=== PATIENT | female | born 1955 | race Caucasian/White ===

== ENCOUNTER 2017-10-16 22:49 | Emergency (ER) | payer BC, OTHER ==
[~2017-10-16] VITALS: Ht 157.5 cm; Wt 82.7 kg
[~2017-10-16 22:49] MED LIST: AMLO5TAB PO; DIAZ5TAB7 PO; DICL1GEL11 TP; DOCU-300; HYDR200T5 PO; IMU50 PO; KEN.1C TP; NITR0.4T2 SL; PHEN100C4 PO; PRED10TA5 PO; SULF1TAB12 PO; TRAM50TA1 PO; ZOLP5TAB1 PO; [UNRECOGNIZED DRUG - CODE] IV; [UNRECOGNIZED DRUG - CODE] PO; [UNRECOGNIZED DRUG - CODE] PO; [UNRECOGNIZED DRUG - CODE] PO
[2017-10-16 22:59] VITALS: BP 166/93
[2017-10-16] MEDS ORDERED: METF500T PO (23:05)
[2017-10-16] MEDS ORDERED: predniSONE 20 MG TAB PO ONE (23:35)
[2017-10-16] MEDS ORDERED: HYDROmorphone PFS 2 MG/ML SYR IM ONE (23:35)
[2017-10-17 00:53] VITALS: BP 128/76
== END 2017-10-17 00:20 | disposition home or self-care (01) ==
LOC: MED 22:49
DX: G89.29 Other chronic pain (principal); E11.9 Type 2 diabetes mellitus without complications; Z88.0 Allergy status to penicillin; Z88.1 Allergy status to other antibiotic agents; Z88.5 Allergy status to narcotic agent
CPT/HCPCS: 81002; 82948; 96372; 99283; J1170; J7512

== ENCOUNTER 2017-11-24 09:10 | Inpatient (IN) | payer BC, OTHER ==
[~2017-11-24] VITALS: Ht 157.5 cm; Wt 74.6 kg
[~2017-11-24 09:10] MED LIST changes: -AMLO5TAB PO; -DIAZ5TAB7 PO; -HYDR200T5 PO; -IMU50 PO; +METF500T PO; -SULF1TAB12 PO; -ZOLP5TAB1 PO; -[UNRECOGNIZED DRUG - CODE] IV; -[UNRECOGNIZED DRUG - CODE] PO
[2017-11-24 09:30] VITALS: BP 121/68
[2017-11-24] MEDS ORDERED: NACL 0.9% 1,000 ML IV ONE (11:10)
[2017-11-24] MEDS ORDERED: ONDANSETRON 4 MG/2 ML VIAL IVP ONE (11:10)
[2017-11-24] MEDS ORDERED: fentaNYL 0.05 MG/ML VIAL IVP ONE ×2 (11:10→12:45)
[2017-11-24 11:50] LABS: BASOPHILS # (AUTO) 0.1 K/uL (0.00-0.22); BASOPHILS % (AUTO) 0.8 % (0.0-2.0); EOSINOPHILS % (AUTO) 0.3 % (0.0-4.0); HEMATOCRIT 43.5 % (36-48); LYMPHOCYTES # (AUTO) 0.8 K/uL (2.5-16.5); LYMPHOCYTES % (AUTO) 6.1 % (20.5-51.1); MEAN CORPUSCULAR HEMOGLOBIN 27 pg (27-31); MEAN CORPUSCULAR HGB CONC 32 g/dL (33-37); MEAN CORPUSCULAR VOLUME 84 fL (80-94); MONOCYTES # (AUTO) 0.7 K/uL (0.8-1.0); MONOCYTES % (AUTO) 5.7 % (1.7-9.3); NEUTROPHILS # (AUTO) 10.9 K/uL (1.8-7.7); NEUTROPHILS % (AUTO) 87.1 % (42.2-75.2); PLATELET COUNT (AUTO) 237 K/uL (140-450); RED BLOOD CELL COUNT(AUTO) 5.21 MIL/uL (4.20-5.40); RED CELL DISTRIBUTION WIDTH 13.7 % (11.6-13.7); WHITE BLOOD COUNT (AUTO) 12.5 K/uL (4.8-10.8)
[2017-11-24 11:54] LABS: ALBUMIN 3.8 g/dL (3.4-5.0); ANION GAP 12.8 (8-16); CARBON DIOXIDE 25.7 mmol/L (21-32); CREATININE 0.7 mg/dL (0.6-1.3); POTASSIUM 3.5 mmol/L (3.5-5.1); TOTAL BILIRUBIN 0.3 mg/dL (0.0-1.0)
[2017-11-24] MEDS ORDERED: methylPREDNISolone SS 125 MG/2 ML VIAL IVP ONE (13:35)
[2017-11-24] MEDS ORDERED: ACETAMINOPHEN 325 MG TAB PO PRN (13:40)
[2017-11-24] MEDS ORDERED: ONDANSETRON 4 MG/2 ML VIAL IVP PRN (13:40)
[2017-11-24] MEDS ORDERED: MORPHINE SULFATE 2 MG/ML SYR IVP PRN (13:40)
[2017-11-24] MEDS ORDERED: LORazepam 2 MG/ML VIAL IVP PRN (13:40)
[2017-11-24 14:57] LABS: APPEARANCE,URINE CLEAR (CLEAR); BILIRUBIN,URINE NEGATIVE (NEGATIVE); BLOOD, URINE 1+ (NEGATIVE); COLOR,URINE YELLOW (YELLOW); LEUKOCYTE ESTERASE ,URINE NEGATIVE (NEGATIVE); NITRITE, URINE NEGATIVE (NEGATIVE); PH,URINE 5.5 (5.0-9.0); UGLUCOSE NEGATIVE (NEGATIVE)
[2017-11-24 15:10] LABS: RBC,URINE 0-5 (RARE) /HPF (0-5); WBC,URINE 0-5 (RARE) /HPF (0-5)
[2017-11-24] MEDS: HYDROmorphone PFS 2 MG/ML SYR IVP PRN ×2 (16:12→20:47)
[2017-11-24] MEDS: NACL 0.9% 1,000 ML IV SCH (16:13)
[2017-11-24 16:41] VITALS: BP 110/62
[2017-11-24] MEDS ORDERED: PNEUMOCOCCAL VACCINE 23 MCG/0.5 ML VIAL IMVAC SCH (17:00)
[2017-11-24] MEDS ORDERED: DOCUSATE SODIUM 100 MG GELCAP PO PRN (17:40)
[2017-11-24 20:00] VITALS: BP 126/59
[2017-11-24] MEDS: predniSONE 20 MG TAB PO SCH (20:48)
[2017-11-24] MEDS: PHENYTOIN 100 MG CAPER PO SCH (20:48)
[2017-11-25] VITALS: BP 115/58
[2017-11-25] MEDS: guaiFENesin DM 200/20 MG-10 ML 10 ML UDC PO PRN ×2 (00:09→05:38)
[2017-11-25] MEDS: NACL 0.9% 1,000 ML IV SCH ×3 (02:12→12:34)
[2017-11-25] MEDS: HYDROmorphone PFS 2 MG/ML SYR IVP PRN ×4 (03:52→20:44)
[2017-11-25 04:00] VITALS: BP 132/55
[2017-11-25 07:21] LABS: BASOPHILS # (AUTO) 0.1 K/uL (0.00-0.22); BASOPHILS % (AUTO) 0.6 % (0.0-2.0); EOSINOPHILS % (AUTO) 0.2 % (0.0-4.0); HEMOGLOBIN 13.2 g/dL (12.0-16.0); LYMPHOCYTES % (AUTO) 9.2 % (20.5-51.1); MEAN CORPUSCULAR HEMOGLOBIN 28 pg (27-31); MEAN CORPUSCULAR HGB CONC 34 g/dL (33-37); MEAN CORPUSCULAR VOLUME 83 fL (80-94); MONOCYTES # (AUTO) 0.5 K/uL (0.8-1.0); MONOCYTES % (AUTO) 4.6 % (1.7-9.3); NEUTROPHILS # (AUTO) 9.1 K/uL (1.8-7.7); NEUTROPHILS % (AUTO) 85.4 % (42.2-75.2); PLATELET COUNT (AUTO) 227 K/uL (140-450); RED BLOOD CELL COUNT(AUTO) 4.72 MIL/uL (4.20-5.40); RED CELL DISTRIBUTION WIDTH 13.8 % (11.6-13.7); WHITE BLOOD COUNT (AUTO) 10.7 K/uL (4.8-10.8)
[2017-11-25 08:00] VITALS: BP 133/58
[2017-11-25] MEDS: predniSONE 20 MG TAB PO SCH ×2 (08:31→20:41)
[2017-11-25] MEDS: PHENYTOIN 100 MG CAPER PO SCH ×2 (08:31→20:41)
[2017-11-25] MEDS: SENNA 8.6 MG TAB PO SCH (08:32)
[2017-11-25] MEDS ORDERED: ENOXAPARIN 30 MG/0.3 ML SYR SUBQ SCH (09:00)
[2017-11-25 09:04] LABS: ANION GAP 12.2 (8-16); CARBON DIOXIDE 25.7 mmol/L (21-32); POTASSIUM 3.9 mmol/L (3.5-5.1)
[2017-11-25 09:05] LABS: ALBUMIN 3.1 g/dL (3.4-5.0); CREATININE 0.6 mg/dL (0.6-1.3); MAGNESIUM 1.9 mg/dL (1.8-2.4); PHOSPHORUS 3.1 mg/dL (2.5-4.9); TOTAL BILIRUBIN 0.2 mg/dL (0.0-1.0)
[2017-11-25 12:00] VITALS: BP 128/60
[2017-11-25 15:46] VITALS: BP_SYST 103; BP_SYST 125; BP_DIAS 53; BP_DIAS 55
[2017-11-25 20:00] VITALS: BP 108/54
[2017-11-26] VITALS: BP 137/67
[2017-11-26 04:00] VITALS: BP 125/65
[2017-11-26] MEDS: HYDROmorphone PFS 2 MG/ML SYR IVP PRN ×5 (05:34→22:08)
[2017-11-26] MEDS: NACL 0.9% 1,000 ML IV SCH ×2 (06:11→15:36)
[2017-11-26 08:00] VITALS: BP 131/65
[2017-11-26] MEDS: PHENYTOIN 100 MG CAPER PO SCH ×2 (09:20→21:01)
[2017-11-26] MEDS: predniSONE 20 MG TAB PO SCH ×2 (09:21→21:01)
[2017-11-26] MEDS: SENNA 8.6 MG TAB PO SCH (09:21)
[2017-11-26 12:00] VITALS: BP 128/58
[2017-11-26 16:00] VITALS: BP 112/58
[2017-11-26] MEDS: guaiFENesin DM 200/20 MG-10 ML 10 ML UDC PO PRN (23:55)
[2017-11-27] VITALS: BP 128/57
[2017-11-27] MEDS: HYDROmorphone PFS 2 MG/ML SYR IVP PRN ×4 (02:29→16:49)
[2017-11-27] MEDS: NACL 0.9% 1,000 ML IV SCH ×2 (02:30→09:27)
[2017-11-27 08:00] VITALS: BP 137/89
[2017-11-27] MEDS ORDERED: methylPREDNISolone SS 40 MG in WATER STERILE 1 ML IV ONE (08:25)
[2017-11-27] MEDS ORDERED: methylPREDNISolone SS 40 MG/ML VIAL IVP SCH (08:31)
[2017-11-27] MEDS: predniSONE 20 MG TAB PO SCH (08:46)
[2017-11-27] MEDS: SENNA 8.6 MG TAB PO SCH (08:46)
[2017-11-27] MEDS: PHENYTOIN 100 MG CAPER PO SCH (08:47)
[2017-11-27] MEDS: ALBUTEROL 0.083% 2.5 MG/3 ML NEBU INH PRN ×2 (09:31→15:18)
[2017-11-27 12:00] VITALS: BP 149/83
[2017-11-27 16:45] VITALS: BP 142/65
== END 2017-11-27 18:12 | DRG 438 ==
LOC: MED 09:10 → MTU 13:43
PROVIDERS: ADMIT Hospitalist; ATTEND Hospitalist
DX: K85.90 Acute pancreatitis without necrosis or infection, unspecified (principal); D66 Hereditary factor VIII deficiency; E11.42 Type 2 diabetes mellitus with diabetic polyneuropathy; M32.9 Systemic lupus erythematosus, unspecified; R56.9 Unspecified convulsions; M79.1 Myalgia; M25.50 Pain in unspecified joint; M54.5 Low back pain; K59.00 Constipation, unspecified; M79.606 Pain in leg, unspecified; Z88.0 Allergy status to penicillin; Z88.6 Allergy status to analgesic agent; Z91.018 Allergy to other foods; Z88.8 Allergy status to other drugs, medicaments and biological substances
CPT/HCPCS: 36415; 80053; 81001; 82948; 83690; 83735; 84100; 84484; 85025; 85651; 86140; 87081; 90732; 93005; 96361; 96374; 96375; 96376; 97110; 97116; 97530; 99285; J1170; J2405; J2920; J2930; J3010; J7030; J7512; J7613; Q0163

== ENCOUNTER 2017-12-19 16:29 | Emergency (ER) | payer BC, OTHER ==
[~2017-12-19] VITALS: Ht 157.5 cm; Wt 76.2 kg
[2017-12-19 16:43] VITALS: BP 123/68
--- NOTE | 2017-12-19 16:49 | NUR ---
PATIENT AMB. TO BED #4
--- NOTE | 2017-12-19 16:55 | NUR ---
PATIENT PRESENTS TO ED WITH C/O RASH AND GENERALIZED PAIN x TODAY @ 1000.HX: DM, LUPUS, MEDS: PREDNISONE, METFORMIN . GENERALIZED RASH, PATIENT STATES PAIN OF 10/10 AT THIS TIME; VSS; PATIENT POSITIONED FOR COMFORT; HOB ELEVATED; BEDRAILS UP X2; BED DOWN. ER MD MADE AWARE OF PT STATUS.
[2017-12-19] MEDS ORDERED: HYDROmorphone PFS 4 MG/ML SYR IM ONE (17:00)
[2017-12-19] MEDS ORDERED: diphenhydrAMINE 50 MG/ML VIAL IM ONE (17:05)
--- NOTE | 2017-12-19 18:00 | NUR ---
Patient discharged with v/s stable. Written and verbal after care instructions given and explained. Patient alert, oriented and verbalized understanding of instructions. Ambulatory with steady gait. All questions addressed prior to discharge. ID band removed. Patient advised to follow up with PMD. Rx of NORCO, PROMETHAZINE, ATARAX given. Patient educated on indication of medication including possible reaction and side effects. Opportunity to ask questions provided and answered.
[2017-12-19 18:01] VITALS: BP 123/68
== END 2017-12-19 18:00 | disposition home or self-care (01) ==
LOC: MED 16:29
DX: L93.0 Discoid lupus erythematosus (principal); K59.00 Constipation, unspecified; L50.9 Urticaria, unspecified; E11.9 Type 2 diabetes mellitus without complications; Z88.0 Allergy status to penicillin; Z88.8 Allergy status to other drugs, medicaments and biological substances; Z88.5 Allergy status to narcotic agent
CPT/HCPCS: 93005; 96372; 99284; J1170; J1200

== ENCOUNTER 2017-12-27 14:12 | Inpatient (IN) | payer BC, OTHER ==
[~2017-12-27] VITALS: Ht 157.5 cm; Wt 74.8 kg
[2017-12-27 14:35] VITALS: BP 136/68
[2017-12-27] MEDS ORDERED: NACL 0.9% 1,000 ML IV ONE (15:30)
[2017-12-27] MEDS ORDERED: diphenhydrAMINE 50 MG/ML VIAL IVP ONE ×2 (15:30→17:10)
[2017-12-27] MEDS ORDERED: MORPHINE SULFATE 10 MG/ML SYR IVP ONE (15:30)
[2017-12-27] MEDS ORDERED: MORPHINE SULFATE ORAL SOLN 2 MG/ML UDC ONE (15:46)
[2017-12-27 16:13] LABS: BASOPHILS # (AUTO) 0.1 K/uL (0.00-0.22); EOSINOPHILS # (AUTO) 0.1 K/uL (0-0.4); EOSINOPHILS % (AUTO) 0.6 % (0.0-4.0); HEMATOCRIT 43.4 % (36-48); HEMOGLOBIN 14.2 g/dL (12.0-16.0); LYMPHOCYTES # (AUTO) 1.2 K/uL (2.5-16.5); LYMPHOCYTES % (AUTO) 14.2 % (20.5-51.1); MEAN CORPUSCULAR HEMOGLOBIN 27 pg (27-31); MEAN CORPUSCULAR HGB CONC 33 g/dL (33-37); MEAN CORPUSCULAR VOLUME 81.6 fL (80-94); MONOCYTES # (AUTO) 0.5 K/uL (0.8-1.0); MONOCYTES % (AUTO) 6.4 % (1.7-9.3); NEUTROPHILS # (AUTO) 6.5 K/uL (1.8-7.7); NEUTROPHILS % (AUTO) 77.8 % (42.2-75.2); PLATELET COUNT (AUTO) 245 K/uL (140-450); RED BLOOD CELL COUNT(AUTO) 5.32 MIL/uL (4.20-5.40); WHITE BLOOD COUNT (AUTO) 8.4 K/uL (4.8-10.8)
[2017-12-27] MEDS ORDERED: MORPHINE SULFATE 4 MG/ML SYR ONE (16:24)
[2017-12-27] MEDS ORDERED: MORPHINE SULFATE 2 MG/ML SYR ONE (16:24)
[2017-12-27 16:28] LABS: PROTHROMBIN TIME 9.8 secs (10.8-13.4)
[2017-12-27 16:29] LABS: ANION GAP 13.2 (8-16); CARBON DIOXIDE 28.3 mmol/L (21-32); CREATININE 0.7 mg/dL (0.6-1.3); POTASSIUM 3.5 mmol/L (3.5-5.1)
[2017-12-27 16:35] LABS: ALBUMIN 3.4 g/dL (3.4-5.0); TOTAL BILIRUBIN 0.2 mg/dL (0.0-1.0)
[2017-12-27] MEDS ORDERED: MORPHINE SULFATE 5 MG/ML VIAL IVP ONE (17:40)
[2017-12-27] MEDS ORDERED: methylPREDNISolone SS 125 MG in WATER STERILE 2 ML IV ONE (18:25)
[2017-12-27] MEDS ORDERED: hydrOXYzine HCL 25 MG TAB PO ONE (18:25)
[2017-12-27] MEDS ORDERED: methylPREDNISolone SS 125 MG/2 ML VIAL ONE (18:30)
[2017-12-27] MEDS ORDERED: hydrOXYzine HCL 25 MG TAB ONE (18:36)
[2017-12-27] MEDS ORDERED: HYDROmorphone PFS 2 MG/ML SYR IVP ONE (18:40)
[2017-12-27] MEDS ORDERED: NACL 0.9% 1,000 ML IV SCH (19:31)
[2017-12-27] MEDS ORDERED: ONDANSETRON 4 MG/2 ML VIAL IVP PRN (19:35)
[2017-12-27] MEDS ORDERED: ACETAMINOPHEN 325 MG TAB PO PRN (19:35)
[2017-12-27] MEDS ORDERED: HYDROcodone/APAP 10/325 MG 1 TAB TAB PO PRN (19:40)
[2017-12-27] MEDS ORDERED: HYDROcodone/APAP 5/325 MG 1 TAB TAB PO PRN (19:40)
[2017-12-27] MEDS ORDERED: DEXTROSE 50% 50 ML SYR IVP PRN (19:45)
[2017-12-27 20:00] VITALS: BP 135/77
[2017-12-27] MEDS ORDERED: traMADol 50 MG TAB PO PRN (20:05)
[2017-12-27] MEDS ORDERED: NITROGLYCERIN 0.4 MG TAB SL PRN (20:05)
[2017-12-27] MEDS ORDERED: DICLOFENAC SODIUM TP PRN (20:05)
[2017-12-27] MEDS ORDERED: TAPENTADOL HCL 100 MG PO PRN (20:05)
[2017-12-27 20:12] LABS: CHOL/HDL RATIO 2.7 (1-4.5); FREE T4 (FREE THYROXINE) 1.07 ng/dL (0.76-1.46); MAGNESIUM 2.2 mg/dL (1.8-2.4); PHOSPHORUS 3.4 mg/dL (2.5-4.9); THYROID STIMULATING HORMONE 0.41 uIU/mL (0.34-3.74)
[2017-12-27 20:17] LABS: APPEARANCE,URINE CLEAR (CLEAR); BILIRUBIN,URINE NEGATIVE (NEGATIVE); BLOOD, URINE NEGATIVE (NEGATIVE); COLOR,URINE YELLOW (YELLOW); LEUKOCYTE ESTERASE ,URINE NEGATIVE (NEGATIVE); NITRITE, URINE NEGATIVE (NEGATIVE); UGLUCOSE 1+ (NEGATIVE)
[2017-12-27 20:23] LABS: BARBITURATE, URINE NEG. ng/ml (NEG <=200); BENZODIAZEPINE, URINE POS. ng/mL (NEG <=200); CANNABINOID, URINE POS. ng/mL (NEG <=50); COCAINE, URINE NEG. ng/mL (NEG <=300); OPIATE, URINE POS. ng/mL (NEG <=2000); PHENCYCLIDINE SCREEN,URINE NEG. ng/mL (NEG <=25)
[2017-12-27] MEDS ORDERED: predniSONE 10 MG TAB PO SCH (21:00)
[2017-12-27] MEDS ORDERED: DOCUSATE SODIUM 100 MG GELCAP PO SCH (21:00)
[2017-12-27] MEDS: BLOOD GLUCOSE MONITORING 1 DEV DEV FS SCH (21:04)
[2017-12-27] MEDS: PHENYTOIN 100 MG CAPER PO SCH (21:17)
[2017-12-27] MEDS: oxyCODONE/APAP 5/325 MG 1 TAB TAB PO PRN (21:19)
[2017-12-27] MEDS ORDERED: LACTULOSE 20 GM/30 ML UDC PO SCH (21:45)
[2017-12-27] MEDS: INSULIN LISPRO SLIDING SCALE 100 UNITS/ML VIAL SUBQ PRN (22:00)
[2017-12-28] VITALS (7 sets, daily range): BP systolic 94–135; BP diastolic 58–78
[2017-12-28] MEDS ORDERED: GABAPENTIN 300 MG CAP PO SCH (01:00)
[2017-12-28] MEDS: GABAPENTIN 300 MG CAP PO SCH ×3 (01:03→20:17)
[2017-12-28] MEDS: HYDROcodone/APAP 5/325 MG 1 TAB TAB PO PRN (01:03)
[2017-12-28] MEDS ORDERED: INFLUENZA VIRUS VACCINE QUAD 0.5 ML SYR IMVAC SCH (02:35)
[2017-12-28] MEDS: oxyCODONE/APAP 5/325 MG 1 TAB TAB PO PRN ×5 (04:33→23:58)
[2017-12-28] MEDS: INSULIN LISPRO SLIDING SCALE 100 UNITS/ML VIAL SUBQ PRN ×4 (05:26→20:39)
[2017-12-28] MEDS ORDERED: TRIAMCINOLONE 0.1% CRM 15 GM TUBE TP PRN (05:40)
[2017-12-28] MEDS: BLOOD GLUCOSE MONITORING 1 DEV DEV FS SCH ×4 (06:44→20:27)
[2017-12-28 07:53] LABS: ANION GAP 16.4 (8-16); CREATININE 0.7 mg/dL (0.6-1.3); POTASSIUM 4.4 mmol/L (3.5-5.1)
[2017-12-28 08:02] LABS: BASOPHILS % (AUTO) 0.5 % (0.0-2.0); EOSINOPHILS % (AUTO) 0.1 % (0.0-4.0); HEMATOCRIT 44.1 % (36-48); HEMOGLOBIN 14.6 g/dL (12.0-16.0); LYMPHOCYTES # (AUTO) 0.5 K/uL (2.5-16.5); LYMPHOCYTES % (AUTO) 5.5 % (20.5-51.1); MEAN CORPUSCULAR HEMOGLOBIN 28 pg (27-31); MEAN CORPUSCULAR HGB CONC 33 g/dL (33-37); MEAN CORPUSCULAR VOLUME 84.4 fL (80-94); MONOCYTES # (AUTO) 0.3 K/uL (0.8-1.0); MONOCYTES % (AUTO) 2.9 % (1.7-9.3); NEUTROPHILS # (AUTO) 9.2 K/uL (1.8-7.7); PLATELET COUNT (AUTO) 227 K/uL (140-450); RED BLOOD CELL COUNT(AUTO) 5.23 MIL/uL (4.20-5.40); RED CELL DISTRIBUTION WIDTH 13.7 % (11.6-13.7)
[2017-12-28] MEDS: metFORMIN 500 MG TAB PO SCH ×2 (08:43→16:49)
[2017-12-28] MEDS: DOCUSATE SODIUM 100 MG GELCAP PO SCH (08:43)
[2017-12-28] MEDS: hydrOXYzine HCL 25 MG TAB PO SCH ×3 (08:44→16:49)
[2017-12-28] MEDS: LACTULOSE 20 GM/30 ML UDC PO SCH ×3 (08:44→20:27)
[2017-12-28] MEDS: predniSONE 10 MG TAB PO SCH ×2 (08:44→20:17)
[2017-12-28] MEDS: PHENYTOIN 100 MG CAPER PO SCH ×2 (08:45→20:17)
[2017-12-28 08:57] LABS: MAGNESIUM 2.1 mg/dL (1.8-2.4); PHOSPHORUS 2.9 mg/dL (2.5-4.9)
[2017-12-28] MEDS ORDERED: predniSONE 5 MG TAB PO SCH (09:00)
[2017-12-28] MEDS ORDERED: CYCLOBENZAPRINE 10 MG TAB PO SCH (14:00)
[2017-12-28] MEDS: traZODone 50 MG TAB PO SCH (20:17)
[2017-12-28] MEDS: KETOROLAC 30 MG/ML VIAL IM PRN (20:20)
[2017-12-29] VITALS: BP 105/56
[2017-12-29] MEDS: KETOROLAC 30 MG/ML VIAL IM PRN ×4 (02:38→20:59)
[2017-12-29 04:00] VITALS: BP 110/60
[2017-12-29] MEDS: BLOOD GLUCOSE MONITORING 1 DEV DEV FS SCH ×4 (06:18→20:58)
[2017-12-29] MEDS: INSULIN LISPRO SLIDING SCALE 100 UNITS/ML VIAL SUBQ PRN ×3 (06:19→17:22)
[2017-12-29] MEDS: oxyCODONE/APAP 5/325 MG 1 TAB TAB PO PRN ×3 (06:25→17:15)
[2017-12-29 07:03] LABS: BASOPHILS # (AUTO) 0.1 K/uL (0.00-0.22); EOSINOPHILS % (AUTO) 0.6 % (0.0-4.0); HEMATOCRIT 43.6 % (36-48); HEMOGLOBIN 14.4 g/dL (12.0-16.0); LYMPHOCYTES # (AUTO) 0.6 K/uL (2.5-16.5); LYMPHOCYTES % (AUTO) 8.3 % (20.5-51.1); MEAN CORPUSCULAR HEMOGLOBIN 28 pg (27-31); MEAN CORPUSCULAR HGB CONC 33 g/dL (33-37); MEAN CORPUSCULAR VOLUME 83.6 fL (80-94); MONOCYTES # (AUTO) 0.4 K/uL (0.8-1.0); MONOCYTES % (AUTO) 5.3 % (1.7-9.3); NEUTROPHILS # (AUTO) 6.5 K/uL (1.8-7.7); NEUTROPHILS % (AUTO) 84.8 % (42.2-75.2); PLATELET COUNT (AUTO) 229 K/uL (140-450); RED BLOOD CELL COUNT(AUTO) 5.22 MIL/uL (4.20-5.40); WHITE BLOOD COUNT (AUTO) 7.6 K/uL (4.8-10.8)
[2017-12-29 07:49] LABS: ANION GAP 14.9 (8-16); CARBON DIOXIDE 24.7 mmol/L (21-32); CREATININE 0.7 mg/dL (0.6-1.3); POTASSIUM 4.6 mmol/L (3.5-5.1)
[2017-12-29 07:55] LABS: MAGNESIUM 2.1 mg/dL (1.8-2.4); PHOSPHORUS 2.6 mg/dL (2.5-4.9)
[2017-12-29 08:43] VITALS: BP 124/70
[2017-12-29] MEDS: hydrOXYzine HCL 25 MG TAB PO SCH ×3 (08:48→17:16)
[2017-12-29] MEDS: predniSONE 10 MG TAB PO SCH ×2 (08:48→20:59)
[2017-12-29] MEDS: metFORMIN 500 MG TAB PO SCH ×2 (08:48→17:14)
[2017-12-29] MEDS: GABAPENTIN 300 MG CAP PO SCH ×2 (08:49→20:58)
[2017-12-29] MEDS: PHENYTOIN 100 MG CAPER PO SCH ×2 (08:49→20:58)
[2017-12-29] MEDS: DOCUSATE SODIUM 100 MG GELCAP PO SCH (08:49)
[2017-12-29] MEDS: LACTULOSE 20 GM/30 ML UDC PO SCH ×2 (08:52→21:00)
[2017-12-29 12:00] VITALS: BP 121/74
[2017-12-29 16:00] VITALS: BP 119/65
[2017-12-29 20:00] VITALS: BP 106/59
[2017-12-29] MEDS: traZODone 50 MG TAB PO SCH (20:58)
[2017-12-30] VITALS: BP 96/56
[2017-12-30 04:00] VITALS: BP 105/61
[2017-12-30] MEDS: KETOROLAC 30 MG/ML VIAL IM PRN ×2 (04:19→10:20)
[2017-12-30] MEDS: INSULIN LISPRO SLIDING SCALE 100 UNITS/ML VIAL SUBQ PRN ×2 (06:03→12:08)
[2017-12-30] MEDS: BLOOD GLUCOSE MONITORING 1 DEV DEV FS SCH ×3 (06:04→16:30)
[2017-12-30 08:00] VITALS: BP 124/65
[2017-12-30] MEDS: metFORMIN 500 MG TAB PO SCH (08:14)
[2017-12-30] MEDS: oxyCODONE/APAP 5/325 MG 1 TAB TAB PO PRN (08:16)
[2017-12-30] MEDS: DOCUSATE SODIUM 100 MG GELCAP PO SCH (08:16)
[2017-12-30] MEDS: GABAPENTIN 300 MG CAP PO SCH (08:17)
[2017-12-30] MEDS: predniSONE 10 MG TAB PO SCH (08:18)
[2017-12-30] MEDS: PHENYTOIN 100 MG CAPER PO SCH (08:18)
[2017-12-30] MEDS: LACTULOSE 20 GM/30 ML UDC PO SCH (08:22)
[2017-12-30] MEDS: hydrOXYzine HCL 25 MG TAB PO SCH ×2 (08:24→12:40)
[2017-12-30 08:27] LABS: ANION GAP 15.6 (8-16); CARBON DIOXIDE 24.7 mmol/L (21-32); CREATININE 0.7 mg/dL (0.6-1.3); POTASSIUM 4.3 mmol/L (3.5-5.1)
[2017-12-30 08:28] LABS: BASOPHILS % (AUTO) 0.1 % (0.0-2.0); HEMATOCRIT 43.5 % (36-48); HEMOGLOBIN 14.7 g/dL (12.0-16.0); LYMPHOCYTES # (AUTO) 1.1 K/uL (2.5-16.5); LYMPHOCYTES % (AUTO) 12.4 % (20.5-51.1); MEAN CORPUSCULAR HEMOGLOBIN 28 pg (27-31); MEAN CORPUSCULAR HGB CONC 34 g/dL (33-37); MEAN CORPUSCULAR VOLUME 82.8 fL (80-94); MONOCYTES # (AUTO) 0.4 K/uL (0.8-1.0); MONOCYTES % (AUTO) 4.9 % (1.7-9.3); NEUTROPHILS % (AUTO) 82.6 % (42.2-75.2); PLATELET COUNT (AUTO) 236 K/uL (140-450); RED BLOOD CELL COUNT(AUTO) 5.26 MIL/uL (4.20-5.40); RED CELL DISTRIBUTION WIDTH 14.8 % (11.6-13.7); WHITE BLOOD COUNT (AUTO) 8.5 K/uL (4.8-10.8)
[2017-12-30 08:45] LABS: MAGNESIUM 2.1 mg/dL (1.8-2.4); PHOSPHORUS 3.1 mg/dL (2.5-4.9)
[2017-12-30 12:00] VITALS: BP 118/63
[2017-12-30] MEDS ORDERED: METF10002 PO (13:38)
[2017-12-30] MEDS: HYDROcodone/APAP 5/325 MG 1 TAB TAB PO PRN (14:28)
[2017-12-30 16:00] VITALS: BP 135/72
== END 2017-12-30 16:45 | disposition home or self-care (01) | DRG 545 ==
LOC: MED 14:12 → MTU 19:11
PROVIDERS: ADMIT Family Medicine; ATTEND Family Medicine
DX: M32.9 Systemic lupus erythematosus, unspecified (principal); N17.0 Acute kidney failure with tubular necrosis; D68.59 Other primary thrombophilia; E11.42 Type 2 diabetes mellitus with diabetic polyneuropathy; E11.69 Type 2 diabetes mellitus with other specified complication; E11.65 Type 2 diabetes mellitus with hyperglycemia; G40.909 Epilepsy, unspecified, not intractable, without status epilepticus; F12.90 Cannabis use, unspecified, uncomplicated; E78.1 Pure hyperglyceridemia; Z88.5 Allergy status to narcotic agent; Z88.0 Allergy status to penicillin; Z88.8 Allergy status to other drugs, medicaments and biological substances; Z79.84 Long term (current) use of oral hypoglycemic drugs; Z79.899 Other long term (current) drug therapy; Z90.710 Acquired absence of both cervix and uterus
CPT/HCPCS: 36415; 71045; 80048; 80053; 80305; 81003; 82140; 82150; 82550; 82948; 83036; 83605; 83690; 83735; 83880; 84100; 84439; 84443; 84484; 85025; 85610; 85651; 86140; 87040; 87081; 90658; 93005; 93925; 93970; 96361; 96374; 96375; 96376; 97116; 97530; 99285; J1170; J1200; J1885; J2270; J2930; J7512; Q0092; Q0163